=== PATIENT | male | born 1960 ===

== ENCOUNTER 2016-09-03 13:27 | Emergency (ER) | payer OTHER ==
[2016-09-03 13:42] VITALS: RESP 18; TEMP 98.6
[2016-09-03 13:43] VITALS: BMI 24.6
--- NOTE | 2016-09-03 15:00 | C.PDOC ---
History Of Present Illness 56 y/o male presents to the ED with complains of pain to left shoulder, back and ankle s/p trauma on 08/07/16. 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 At the time, patient felt ok and continued working. Pt hit head but denies LOC, vomiting, change in sensation or any other complaints. 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 Limitations: language barrier Onset/Duration Of Symptoms: Days Current Symptoms Are (Timing): Worse Quality: "Pain" Recent travel outside of the [place]: No Past Medical History Reviewed: Historical Data, Nursing Documentation, Vital Signs Vital Signs: Last Vital Signs Temp 98.6 F 09/03/16 13:41 Pulse 79 09/03/16 15:54 Resp 18 09/03/16 15:54 BP 132/75 09/03/16 15:54 Pulse Ox 98 09/03/16 15:54 Surgical History: Appendectomy Family History: States: Unknown Family Hx - Social History Hx Tobacco Use: No Hx Alcohol Use: No Hx Substance Use: No - Immunization History Hx Tetanus Toxoid Vaccination: No Hx Influenza Vaccination: Yes Hx Pneumococcal Vaccination: No Review Of Systems Except As Marked, All Systems Reviewed And Found Negative. Constitutional: Negative for: Fever Gastrointestinal: Negative for: Nausea, Vomiting Musculoskeletal: Positive for: Other (left shoulder, back and ankle pain) Neurological: Negative for: Weakness, Numbness Physical Exam - Physical Exam Appears: Non-toxic, No Acute Distress Skin: Warm, Dry, No Rash Head: Atraumatic, Normacephalic, No Tenderness, No Swelling, No Laceration Eye(s): bilateral: Normal Inspection, PERRL, EOMI Nose: Normal Oral Mucosa: Moist Throat: Normal, No Erythema, No Exudate Neck: Normal ROM, No Midline Cervical Tenderness, Supple Lymphatic: Normal Exam Chest: Symmetrical Cardiovascular: Rhythm Regular Respiratory: Normal Breath Sounds Gastrointestinal/Abdominal: Normal Exam, Soft, No Tenderness Back: No CVA Tenderness, No Vertebral Tenderness, Paraspinal Tenderness (left lower paralumbar tenderness) Extremity: Tenderness (diffuse tenderness to left shoulder, left elbow and left lateral ankle tenderness), Calf Tenderness (left), Capillary Refill (<2 sec ), No Deformity, No Swelling, Other (Decreased ROM to left shoulder secondary to pain) Extremity: Left: Painful To Bear Weight, Bilateral: No Pedal Edema, Normal Color And Temperature Pulses: Left Radial: Normal, Right Radial: Normal, Left Dorsalis Pedis: Normal, Right Dorsalis Pedis: Normal Neurological/Psych: Oriented x3, Normal Motor, Normal Sensation Gait: Steady ED Course And Treatment O2 Sat by Pulse Oximetry: 97 (on room air) Pulse Ox Interpretation: Normal - Other Rad XR elbow X-Ray: Viewed By Me, Read By Radiologist Interpretation: Accession No. : [id number]. Patient Name / ID : JUDITH Kwon / [id number]. Exam Date : 09/03/2016 14:36:03 ( Approved ). Study Comment : Sex / Age : M / 56Y. Creator : SAROJ ISAAC. Dictator : Abdirahman Davis MD. Braid Cutter : Tacker Off : Abdirahman Davis MD. Approver2 : Report Date : 09/03/2016 15:09:14. My Comment : . PROCEDURE: Radiographs of the left elbow. HISTORY: trauma. COMPARISON: No prior. FINDINGS: BONES: Normal. No fracture. JOINTS: Normal. No osteoarthritis. SOFT TISSUES: Normal. JOINT EFFUSION: None. OTHER FINDINGS: None. IMPRESSION: Unremarkable radiographs of the left elbow. XR ankle X-Ray: Viewed By Me, Read By Radiologist Interpretation: Accession No. : [id number]. Patient Name / ID : JUDITH Kwon / [id number]. Exam Date : 09/03/2016 14:35:39 ( Approved ). Study Comment : Sex / Age : M / 56Y. Creator : SAROJ ISAAC. Dictator : Pao Del Cid MD. Braid Cutter : Tacker Off : Pao Del Cid MD. Approver2 : Report Date : 09/03/2016 15:09:15. My Comment : . PROCEDURE: Left Ankle Radiographs. HISTORY: trauma. COMPARISON: None available. FINDINGS: BONES: No acute displaced fracture. JOINTS: No dislocation. SOFT TISSUES: Unremarkable. No evidence of radiopaque foreign body. OTHER FINDINGS: None. IMPRESSION: No acute displaced fracture, dislocation, or significant joint effusion identified. If symptoms persist or if there is clinical concern, x-ray follow-up in 7-10 days should be considered. XR lumbar spine X-Ray: Viewed By Me, Read By Radiologist Interpretation: Accession No. : [id number]. Patient Name / ID : JUDITH BRADY S / [id number]. Exam Date : 09/03/2016 14:37:07 ( Approved ). Study Comment : Sex / Age : M / 56Y. Creator : SAROJ ISAAC. Dictator : Pao Del Cid MD. Braid Cutter : Tacker Off : Pao Del Cid MD. Approver2 : Report Date : 09/03/2016 15:09:14. My Comment : . PROCEDURE: Radiographs of the Lumbar Spine. HISTORY: trauma. COMPARISON: Images from lumbar spine radiographs performed 08/20/11. FINDINGS: BONES: Alignment appears satisfactory. No listhesis. No acute displaced fracture identified. Mild degenerative changes including small anterior osteophytes. DISC SPACES: Unremarkable. OTHER FINDINGS: Moderate constipation. IMPRESSION : No acute displaced fracture or dislocation identified. Moderate constipation. XR left shoulder X-Ray: Viewed By Me, Read By Radiologist Interpretation: Accession No. : [id number]. Patient Name / ID : JUDITH BRADY S / [id number]. Exam Date : 09/03/2016 14:37:17 ( Approved ). Study Comment : Sex / Age : M / 56Y. Creator : SAROJ ISAAC. Dictator : Pao Del Cid MD. Braid Cutter : Tacker Off : Pao Del Cid MD. Approver2 : Report Date : 09/03/2016 15:09:14. My Comment : . PROCEDURE: Radiographs of the Left Shoulder. HISTORY: trauma. COMPARISON: None available. FINDINGS: BONES: No acute displaced fracture. The distal clavicle and underlying ribs appear intact. JOINTS: No acute dislocation. SOFT TISSUES: Soft tissues appear unremarkable. No evidence of radiopaque foreign body. IMPRESSION: No acute displaced fracture or dislocation evident. If symptoms persist or if there is continued clinical concern, x-ray follow- up in 7-10 days should be considered. Progress Note: Plan: XR ankle, elbow, lumbar spine, shoulder;. On re- evaluation pain improved. Steady gait. No SOB. No change in sensation. PT was instructed to follow up with PMD/ortho for further evaluation. Instructed to return to ER if symtpoms persist or worsen. Disposition - Disposition Referrals: [facility] [Outside] Perla Heller MD [Staff Provider] - Disposition: HOME/ ROUTINE Disposition Time: 15:32 Condition: STABLE Additional Instructions: Vaya a al mdico o la clnica en 1-3 reese sin falta, para mas evaluacin. Dahlgren los medicamentos w[place] indicado. Volver a la eugenia de emergencia en cualquier momento si los sntomas persisten o empeoran. Prescriptions: Naproxen [Naprosyn] 1 tab PO BID PRN #20 tab PRN Reason: Pain Instructions: Sprain (ED) Print Language: SLOVAK - Clinical Impression Clinical Impression: Shoulder contusion, Elbow contusion, Ankle sprain, Lower back pain - PA / CUFF CUTTER / Resident Statement MD/DO has reviewed & agrees with the documentation as recorded. - Scribe Statement The provider has reviewed the documentation as recorded by the Scribleonel Badillo All medical record entries made by the Agnieszka were at my direction and personally dictated by me. I have reviewed the chart and agree that the record accurately reflects my personal performance of the history, physical exam, medical decision making, and the department course for this patient. I have also personally directed, reviewed, and agree with the discharge instructions and disposition.
--- NOTE | 2016-09-03 15:29 | RAD ---
PROCEDURE: Radiographs of the left elbow. HISTORY: trauma COMPARISON: No prior. FINDINGS: BONES: Normal. No fracture. JOINTS: Normal. No osteoarthritis. SOFT TISSUES: Normal. JOINT EFFUSION: None. OTHER FINDINGS: None IMPRESSION: Unremarkable radiographs of the left elbow.
--- NOTE | 2016-09-03 15:37 | RAD ---
PROCEDURE: Left Ankle Radiographs. HISTORY: trauma COMPARISON: None available. FINDINGS: BONES: No acute displaced fracture. JOINTS: No dislocation. SOFT TISSUES: Unremarkable. No evidence of radiopaque foreign body. OTHER FINDINGS: None. IMPRESSION: No acute displaced fracture, dislocation, or significant joint effusion identified. If symptoms persist or if there is clinical concern, x-ray follow-up in 7-10 days should be considered.
--- NOTE | 2016-09-03 15:38 | VASCLAB ---
PROCEDURE: Left Lower Extremity Venous Duplex Exam. HISTORY: Pain in limb, S/P Fall PRIORS: None. TECHNIQUE: Left common femoral, femoral, popliteal and posterior tibial, peroneal and great saphenous veins were evaluated. Flow was assessed with color Doppler, compressibility, assessment of phasic flow and augmentation response. Report prepared by MARYAN Elena FINDINGS: LEFT: 1. Common Femoral Vein: 1.1. Compressibility - Fully compressible: Thrombus - None : Flow - Phasic: Augmentation -Normal: Reflux - None. 2. Femoral Vein: 2.1. Compressibility - Fully compressible: Thrombus - None: Flow - Phasic: Augmentation -Normal: Reflux - None. 3. Popliteal Vein: 3.1. Compressibility - Fully compressible: Thrombus - None: Flow - Phasic: Augmentation -Normal: Reflux - None. 4. Posterior Tibial Vein: 4.1. Compressibility - Fully compressible: Thrombus - None: Flow - Phasic: Augmentation -Normal: Reflux - None. 5. Peroneal Vein: 5.1. Compressibility - Fully compressible: Thrombus - None: Flow - Phasic: Augmentation -Normal: Reflux - None. 6. Great Saphenous Vein: 6.1. Compressibility - Fully compressible: Thrombus - None: Flow - Phasic: Augmentation - Normal: Reflux - None. OTHER FINDINGS: IMPRESSION: No evidence of deep or superficial vein thrombosis of the left lower extremity with excellent venous flow. Normal valve function noted of the left side. Normal venous flow noted in the right common femoral vein.
--- NOTE | 2016-09-03 15:41 | RAD ---
PROCEDURE: Radiographs of the Lumbar Spine. HISTORY: trauma COMPARISON: Images from lumbar spine radiographs performed 08/20/11 FINDINGS: BONES: Alignment appears satisfactory. No listhesis. No acute displaced fracture identified. Mild degenerative changes including small anterior osteophytes. DISC SPACES: Unremarkable. OTHER FINDINGS: Moderate constipation. IMPRESSION: No acute displaced fracture or dislocation identified. Moderate constipation.
--- NOTE | 2016-09-03 15:44 | RAD ---
PROCEDURE: Radiographs of the Left Shoulder HISTORY: trauma COMPARISON: None available. FINDINGS: BONES: No acute displaced fracture. The distal clavicle and underlying ribs appear intact. JOINTS: No acute dislocation. SOFT TISSUES: Soft tissues appear unremarkable. No evidence of radiopaque foreign body. IMPRESSION: No acute displaced fracture or dislocation evident. If symptoms persist or if there is continued clinical concern, x-ray follow-up in 7-10 days should be considered.
[2016-09-03 15:56] VITALS: BP 132/75; PULSE 79
[2016-09-03 19:55] VITALS: O2SAT 97
== END 2016-09-03 15:56 | disposition home or self-care (01) ==
LOC: C.ER 13:27
DX: S40.012A Contusion of left shoulder, initial encounter (principal); S50.02XA Contusion of left elbow, initial encounter; S93.402A Sprain of unspecified ligament of left ankle, initial encounter; M54.5 Low back pain; W11.XXXA Fall on and from ladder, initial encounter